=== PATIENT | male | born 1985 | race Two or more races ===

== ENCOUNTER 2018-05-21 12:40 | Emergency (ER) | payer OTHER ==
[2018-05-21] MEDS ORDERED: IBUPROFEN 800 MG TAB PO ONE (12:51)
--- NOTE | 2018-05-21 13:23 | EDPHY ---
H & P Time Seen by Provider: 05/21/18 12:50 HPI/ROS: CHIEF COMPLAINT: Foot injury HISTORY OF PRESENT ILLNESS: 32-year-old gentleman presents after a foot injury at work last night. 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 He heard a snap. He has been able to ambulate with difficulty since then. Took ibuprofen this morning. Indicates the area pain is over the lateral foot. No other injuries. Patient was otherwise well prior to the event. REVIEW OF SYSTEMS: A comprehensive 10 system review of systems was reviewed and is otherwise negative aside from elements mentioned in the history of present illness. PAST MEDICAL HISTORY: Denies. S/P appendectomy and cholecystectomy. 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 Nonsmoker. GENERAL APPEARANCE: Uncomfortable appearing. He is limping on arrival. FOCUSED EXAM OF right lower extremity: Full range of motion, no swelling or pain at the knee. No deformity of the tib-fib area. Ankle: No tenderness palpation on the lateral and medial malleoli. No tenderness across the talus. No defect noted in the Achilles tendon. Tenderness to palpation over the head of the 5th metatarsal and lateral foot. Does have Dorsalis and posterior tibial pulses intact. Smoking Status: Never smoked Constitutional: Initial Vital Signs Temperature (C) 36.6 C 05/21/18 12:48 Heart Rate 78 05/21/18 12:48 Respiratory Rate 20 05/21/18 12:48 Blood Pressure 134/95 H 05/21/18 12:48 O2 Sat (%) 97 05/21/18 12:48 O2 Delivery Mode Room Air Allergies/Adverse Reactions: No Known Allergies Allergy (Unverified 05/21/18 12:48) Home Medications: Medication Instructions Recorded Hydrocodone/APAP 5/325 [[place] 1 tab PO Q6H PRN #10 tab 05/21/18 5/325 (RX)] Medical Decision Making - Diagnostics Imaging Results: Xray: Right foot was obtained. I viewed the images myself on the PACS system. My interpretation of the images is: Transverse fracture at the 5th metatarsal , diaphyseal. The radiology interpretation is: Pending. I discussed the results with the patient. Imaging: I viewed and interpreted images myself ED Course/Re-evaluation: Foot x-ray reveals transverse process at the diaphysis of the 5th metatarsal. Patient denies prior history of pain or stress fracture. Doubt this is the [place] fracture. Patient was placed in a boot, given crutches, instructed carefully regarding nonweightbearing status, and follow up with Orthopedic surgery. He understands the precautions and instructions. Differential Diagnosis: Differential diagnosis for the patient's injury was considered including but not limited to contusion, abrasion, laceration, fracture, open fracture, or dislocation. - Data Points Medications Given: Discontinued Medications Ibuprofen (Motrin) 800 mg PO EDNOW ONE Stop: 05/21/18 12:52 Last Admin: 05/21/18 13:02 Dose: 800 mg Departure - Departure Disposition: Home, Routine, Self-Care Clinical Impression: Fracture of fifth metatarsal bone of right foot Qualifiers: Encounter type: initial encounter Fracture type: closed Fracture alignment: nondisplaced Qualified Code(s): S92.354A - Nondisplaced fracture of fifth metatarsal bone, right foot, initial encounter for closed fracture Condition: Good Instructions: Toe Fracture (ED) Additional Instructions: You have a fracture of one of the bones in your foot. It is very important that you do not walk or bear weight on your foot until you are seen by Orthopedic surgery. The most important parts of treatment are rest the foot, ice to the area pain, keeping the foot in the boot as much as possible, keeping her foot elevated as much as possible, and taking nonsteroidals for pain and to decrease swelling. DO NOT WALK ON THE FOOT. Apply ice for 20-30 minutes every 2-3 hours for the next 48 hours. I recommend Ibuprofen (Motrin, Advil) or Naproxen Sodium (Aleve) for pain and anti-inflammatory effects. You may take either one, but do not take both. Your dose is: Ibuprofen 600 mg every 6-8 hours with food. OR Naproxen Sodium (Aleve) 220 mg every 12 hours. Okay to use hydrocodone as needed for severe pain. Please contact your workman[employer] insurance company and advised that you need follow-up as an asset protection specialist. They may require you to follow up with a specific orthopedic surgeon. If not, please follow up with orthopedic surgeon at [facility]. You may return to work, however, you need to use crutches if walking and not to stand on the foot. Referrals: [facility] [Other] - As per Instructions Tristen Van MD [Medical Doctor] - As per Instructions (Please follow up with Dr. Van or with 1 of his partners in the next 2-3 days. Let the office know you have a fracture of your foot.) Prescriptions: Hydrocodone/APAP 5/325 [[place] 5/325 (RX)] 1 tab PO Q6H PRN #10 tab PRN Reason: Pain
[2018-05-21 13:40] VITALS: BP 135/66
== END 2018-05-21 13:38 | disposition home or self-care (01) ==
LOC: CED 12:40
DX: S92.354A Nondisplaced fracture of fifth metatarsal bone, right foot, initial encounter for closed fracture (principal); X58.XXXA Exposure to other specified factors, initial encounter; Y99.0 Civilian activity done for income or pay; Y93.G9 Activity, other involving cooking and grilling; Y92.89 Other specified places as the place of occurrence of the external cause
CPT/HCPCS: 73630-PO